=== PATIENT | male | born 2005 | race Caucasian/White ===

== ENCOUNTER 2024-04-09 23:05 | Emergency (ER) | payer OTHER, SELFPAY ==
[2024-04-09 23:07] VITALS: BP 130/72
--- NOTE | 2024-04-10 00:14 | ED.GENMED ---
History of Present Illness
<EDWARD Martinez - Last Filed: 04/10/24 01:07>
General
Chief Complaint: Post Operative Problem(s)
Source: patient and family (mother)
Time Seen by Provider: 04/10/24 00:08
Travel History
Have you had any contact with someone who has COVID-19?: No
Do you have any symptoms of coronavirus? Fever > 100 degrees, chills, cough, shortness of breath, sore throat, loss of taste or smell, muscle aches, or headache?: No
History of Present Illness
History of Present Illness:
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 Today he developed bleeding to the incision site. States
he was fine prior to today. No other bleeding episodes. Mother states bleeding stopped on arrival to the ER. He reports sore throat. Denies fevers/chills, cough, SOB. He is not on blood thinners. He has been eating well. Pt ate mashed potatoes
today. Mother at bedside.
Review of Systems
<EDWARD Martinez - Last Filed: 04/10/24 01:07>
Review of Systems
Allergies reviewed?: Yes
All Other Systems: ROS reviewed and negative except as documented in HPI and ROS
Constitutional: Reports no symptoms
EENT: Reports other (sore throat, bleeding from throat)
Respiratory: Reports no symptoms
Cardiac: Reports no symptoms
ABD/GI: Reports no symptoms
: Reports no symptoms
Musculoskeletal: Reports no symptoms
Skin: Reports no symptoms
Neurological: Reports no symptoms
Endocrine: Reports no symptoms
Hematologic/Lymphatic: Reports bleeding
Psychiatric: Reports no symptoms
Phy Exam
<EDWARD Martinez - Last Filed: 04/10/24 01:07>
General Physical Exam
General Presentation: well appearing and no apparent distress
General age: appears stated age
General Skin: warm
General Habitus: normal
General Mental: alert
General Hydration: appears well hydrated
ENT Exam
ENT Exam: other (Bilateral tonsil incisions, there is red blood to R incision site, no active bleeding, no purulent drainage)
Cardiovascular Exam
Cardiovascular Exam: regular rate/rhythm, no edema, no gallop and no murmur
Pulmonary Exam
Pulmonary Exam: lungs clear, no respiratory distress, no rales, no crackles, no rhonchi, no wheezing and no cough
Skin Exam
Skin Exam: normal color and warm/dry
Psychiatric Exam
Psychiatric Exam: normal mood/affect
Course
<EDWARD Martinez - Last Filed: 04/10/24 01:07>
Orders/Labs/Results
Orders:
Orders
04/10/24 01:02
0.9% Sodium Chloride 1000 ml [Nss] 1,000 ml IV BOLUS
Vital Signs
Initial and Last Documented VS:
Initial Vital Signs
Temp Pulse Resp BP Pulse Ox
97.8 F 76 24 130/72 98
04/09/24 23:07 04/09/24 23:07 04/09/24 23:07 04/09/24 23:07 04/09/24 23:07
Last Documented Vital Signs
Temp Pulse Resp BP Pulse Ox
97.8 F 76 24 130/72 98
04/09/24 23:07 04/09/24 23:07 04/09/24 23:07 04/09/24 23:07 04/09/24 23:07
<Leta Gayle DO - Last Filed: 04/10/24 02:49>
Orders/Labs/Results
Orders:
Orders
04/10/24 01:02
0.9% Sodium Chloride 1000 ml [Nss] 1,000 ml IV BOLUS
Vital Signs
Initial and Last Documented VS:
Initial Vital Signs
Temp Pulse Resp BP Pulse Ox
97.8 F 76 24 130/72 98
04/09/24 23:07 04/09/24 23:07 04/09/24 23:07 04/09/24 23:07 04/09/24 23:07
Last Documented Vital Signs
Temp Pulse Resp BP Pulse Ox
97.8 F 76 24 130/72 98
04/09/24 23:07 04/09/24 23:07 04/09/24 23:07 04/09/24 23:07 04/09/24 23:07
<EDWARD Martinez - Last Filed: 04/10/24 01:07>
MDM/Problems Addressed
Differential Diagnosis Includes:
bleeding from tonsillectomy incision site
MDM/Problems Addressed:
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
<EDWARD Martinez - Last Filed: 04/10/24 01:07>
*Critical Care Note
Total Time (30-74mins, 75-104mins- exclusive of procedures): Not Applicable
<Leta Gayle DO - Last Filed: 04/10/24 02:49>
*Pulse Oximetry
Patient hypoxic: no
ED Attending Note
<EDWARD Martinez - Last Filed: 04/10/24 01:07>
-
Portions of this chart may have been created with voice recognition software.� Occasional wrong word or��sound alike� substitutions may have occurred due to the inherent limitations of voice recognition software.
<Leta Gayle DO - Last Filed: 04/10/24 02:49>
ED Attending Note
Patient seen and examined by attending physician: Yes
I performed the substantive portion of visit, reviewed & personally made and approve the management plan that is documented in note by myself or CHIQUI.: Yes
I performed a history and physical exam of patient and discussed management with resident, I reviewed resident's note and agree with documented findings and plan of care.: Yes
ED Attending Note:
This is a 18-year-old male who underwent bilateral tonsillectomy on Wednesday, April 07. Tonsillectomy performed at [facility] by Dr. Tucker.
He has been feeling fairly well since surgical procedure, tolerating clear liquids and soft foods but tonight around 10:30 PM he developed abrupt onset of bleeding from right tonsillar site coughing up a fair amount of bright red clots. Moderate
bleeding initially for the first 10 minutes but then seemed to slow down and subside over the ensuing 15 to 20 minutes.
He has had no recurrent bleeding since arrival to the ED.
He has not had a fever nor chills.
GENERAL: 18-year-old male appears his stated age, bright and alert, pleasant, appears in no acute distress. Intermittently spitting clear phlegm into a bucket.
EYE: anicteric
NECK: Supple, minimal tenderness posterior submandibular region, no meningismus, no significant adenopathy.
ENT: There is a superficial clot at right tonsillar fossa but no active bleeding. Left tonsillar fossa/tonsillectomy site is intact. Oral mucosa is moist. TM clear b/l, nares patent.
CARDIAC: Regular rate and rhythm. no murmur.
LUNGS: Clear breath sounds bilaterally, no acute respiratory distress, no wheezes/rales/rhonchi
ABDOMEN: Soft, nondistended, without focal tenderness
NEUROLOGICAL: Alert and oriented x3, no focal neuro deficits. Gait is steady.
SKIN: Warm and dry, normal color, skin intact. No rash.
MUSCULOSKELETAL: No C/C/E. peripheral pulses are full and equal b/l. No palpable tenderness.
PSYCH: Normal and appropriate interaction.
Patient is postop day 2�now postop day 3 with post tonsillectomy bleeding from right tonsillectomy site.
There is a very superficial clot at right tonsillar fossa but no active bleeding.
Clinically appears euvolemic.
Hemodynamically stable.
Will initiate IV fluids and continue to observe and will reach out to ENT on-call.
Patient has been offered pain medication which she currently declines.
04/10/2024 0240 AM
Patient has had no return of bleeding since arrival to the ED.
He continues to appear comfortable. Has not required pain medication.
Case discussed with Dr. Light who recommends patient be discharged to home. Recommend he limit diet to clear liquids today, limit activities today and to call Dr. Tucker's office to follow-up early this week.
Return precautions discussed.
Discharge Plan
Departure
Patient Disposition: Home (Routine Discharge)
Date of Disposition: 04/10/24
Time of Disposition: 02:45
Patient with high blood pressure during this ER visit?: No
Condition: Good
Discharge Problem:
Post-tonsillectomy hemorrhage
Instructions: Tonsillectomy (DC), Bleeding After Surgery, Clear Liquid Diet
Prescriptions:
No Action
celecoxib [Celebrex] 200 mg Capsule
200 mg PO BID
Rx Instructions:
for 14 days post op
acetaminophen 160 mg/5 mL Liquid
640 mg PO Q6H PRN (Reason: mild pain)
oxycodone 5 mg/5 mL Solution
5 mg PO Q4H PRN (Reason: pain)
prednisone 10 mg Tablets,Dose Pack
0 mg PO PER PKG DIR
Rx Instructions:
40mg for 3 days, then 30mg for 3 days, then 20mg for 3 days, then 10mg for 3 days
gabapentin 300 mg Capsule
300 mg PO BID
Rx Instructions:
for 14 days post op
Referrals:
Ministerio Tucker MD [Family Provider] - Next open appointment
UNKNOWN - PT DOES,NOT KNOW [Unknown Provider] -
Activity Restrictions/Additional Instructions:
Limit your activity today as well as limit your diet to clear liquids over the next [address] Tucker's office today to schedule follow-up regarding post tonsillectomy bleeding.
Interventions
Interventions:
*Risk Screen - Suicide Last Done: 04/09/24 23:07
*General Assessment Last Done: 04/10/24 01:01
*Neglect/Abuse Screening Last Done: 04/09/24 23:07
*ED COVID-19 Vaccine History Last Done: 04/10/24 01:01
ED-Skin Assessment Last Done: 04/10/24 01:01
Discharge Date and Time
Print Language: CHILEAN
[2024-04-10] MEDS: NSS 1000 IV (01:03)
== END 2024-04-10 02:58 | disposition home or self-care (01) ==
LOC: EMR 23:05
PROVIDERS: EMERGENCY PHYSICIAN Emergency Medicine; FAMILY PHYSICIAN Otolaryngology
DX: J95.830 Postprocedural hemorrhage of a respiratory system organ or structure following a respiratory system procedure (principal)
CPT/HCPCS: 99282; 96360